=== PATIENT | male | born 1960 | race Caucasian/White ===

== ENCOUNTER 2017-02-16 07:49 | Inpatient (IN) | payer OTHER ==
[~2017-02-16] VITALS: Ht 167.6 cm; Wt 81.6 kg
--- NOTE | 2017-02-16 08:03 | NUR ---
PT COMPLAINS OF MID EPIGASTRIC PAIN THAT RADIATES INTO HIS BACK SINCE 0300 THIS AM, TRIED PEPCID WITH NO RELIEF AT 0500, TOOK MYLANTA AT 0730 AND VOMITTED IT UP. PT STATES THAT HE HAD SIMILAR PAIN YESTERDAY AM AND THEY WENT AWAY.
--- NOTE | 2017-02-16 08:08 | ED GENERAL ADULT ---
History of Present Illness General Chief Complaint: Abdominal Pain/Flank Pain Stated Complaint: UPPER ABD PAIN NAUSEA Vital Signs & Intake/Output Vital Signs & Intake/Output Vital Signs Date Time Temp Pulse Resp B/P B/P Pulse O2 O2 Flow FiO2 Mean Ox Delivery Rate 02/16 0756 96.4 70 16 151/88 99 Room Air Allergies Coded Allergies: tetracycline (Severe, PANCREATITIS 02/16/17) Reconcile Medications Aspirin (Aspirin*) 81 MG TAB.CHEW 1 TAB PO DAILY HEART HEALTH (Reported) Famotidine 20 MG TABLET 1 TAB PO ONCE GI (Reported) Fish Oil/Borage/Flax/Om3,6,9#1 ([place] 3-6-9 1,200 MG Softgel) 1,200 MG CAPSULE 1 CAP PO DAILY SUPPLEMENT (Reported) Multivit-Minerals/FA/Lycopene (One Daily For Men Tablet) 0.4 MG-600 MCG TABLET 1 TAB PO DAILY VITAMIN SUPPORT (Reported) Rosuvastatin Calcium (Crestor) 5 MG TABLET 1 TAB PO DAILY CHOLESTEROL ( Reported) Valacyclovir HCl (Valacyclovir) 500 MG TABLET 1 TAB PO DAILY ANTIBIOTIC, INFECTION (Reported) Triage Note: PT COMPLAINS OF MID EPIGASTRIC PAIN THAT RADIATES INTO HIS BACK SINCE 0300 THIS AM, TRIED PEPCID WITH NO RELIEF AT 0500, TOOK MYLANTA AT 0730 AND VOMITTED IT UP. PT STATES THAT HE HAD SIMILAR PAIN YESTERDAY AM AND THEY WENT AWAY. 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
[2017-02-16] MEDS ORDERED: VALACYCLOVIR500 M1 PO (08:20)
[2017-02-16] MEDS ORDERED: OMEGA 3-6-9 11200 MG PO (08:21)
[2017-02-16] MEDS ORDERED: CRESTOR5 M1 PO (08:21)
[2017-02-16] MEDS ORDERED: ASPIRIN81 M4 PO (08:21)
[2017-02-16] MEDS ORDERED: FAMOTIDINE20 M1 PO (08:22)
[2017-02-16] MEDS ORDERED: ONE DAILY FOR1 EAC1 PO (08:22)
--- NOTE | 2017-02-16 08:27 | NUR ---
PT TO ROOM 7 CHANGING INTO GOWN AND TO BE PLACED ON MONITOR
--- NOTE | 2017-02-16 08:29 | ED GI/GU/ABDOMINAL COMPLAINT ---
History of Present Illness General Chief Complaint: Abdominal Pain/Flank Pain Stated Complaint: UPPER ABD PAIN NAUSEA Source: patient, family, old records Exam Limitations: no limitations Vital Signs & Intake/Output Vital Signs & Intake/Output Vital Signs Date Time Temp Pulse Resp B/P B/P Pulse O2 O2 Flow FiO2 Mean Ox Delivery Rate 02/16 1358 97.9 74 18 124/74 98 Room Air 02/16 1255 97.5 68 15 129/89 98 Room Air 02/16 1039 97.3 82 18 136/90 97 Room Air 02/16 0756 96.4 70 16 151/88 99 Room Air Allergies Coded Allergies: tetracycline (Severe, PANCREATITIS 02/16/17) Reconcile Medications Aspirin (Aspirin*) 81 MG TAB.CHEW 1 TAB PO DAILY HEART HEALTH (Reported) Famotidine 20 MG TABLET 1 TAB PO ONCE GI (Reported) Fish Oil/Borage/Flax/Om3,6,9#1 ([place] 3-6-9 1,200 MG Softgel) 1,200 MG CAPSULE 1 CAP PO DAILY SUPPLEMENT (Reported) Multivit-Minerals/FA/Lycopene (One Daily For Men Tablet) 0.4 MG-600 MCG TABLET 1 TAB PO DAILY VITAMIN SUPPORT (Reported) Rosuvastatin Calcium (Crestor) 5 MG TABLET 1 TAB PO DAILY CHOLESTEROL ( Reported) Valacyclovir HCl (Valacyclovir) 500 MG TABLET 1 TAB PO DAILY ANTIBIOTIC, INFECTION (Reported) Triage Note: PT COMPLAINS OF MID EPIGASTRIC PAIN THAT RADIATES INTO HIS BACK SINCE 0300 THIS AM, TRIED PEPCID WITH NO RELIEF AT 0500, TOOK MYLANTA AT 0730 AND VOMITTED IT UP. PT STATES THAT HE HAD SIMILAR PAIN YESTERDAY AM AND THEY WENT AWAY. Triage Nurses Notes Reviewed? yes Onset: Abrupt Duration: day(s): (1), constant, changing over time, continues in ED Timing: single episode today Quality/Severity: moderate, sharpness, stabbing, vomiting Severity Numbers: 5 Location: epigastric, left upper quadrant Radiation: back Activities at Onset: sleep Prior Abdominal Problems: gerd No Modifying Factors: none Modifying Factors: Worsens With: eating, movement, palpation. Associated Symptoms: abdominal pain, loss of appetite, nausea/vomiting HPI: 56-year-old male history of hyperlipidemia and GERD presents for evaluation of upper abdominal pain. Patient reports that 2 nights ago he was awoken suddenly with pain in his epigastric area. Patient reports that the pain was mild to moderate and went away in a couple hours. he was feeling better throughout the day until again in the middle of night he was woken up with epigastric pain that radiates to his back. During this episode the pain was more severe and associated with nausea and loose stools. No blood in the stool. Pain is worse with eating or any type of movement. he tried taking a dose of Pepcid and Mylanta without any improvement. Patient reports he has had similar symptoms in the past when he's been diagnosed with gastritis. He also has a history of pancreatitis caused by an allergic reaction. Denies any alcohol use, fevers, previous abdominal surgeries, shortness of breath chest pain, urinary symptoms. Patient feels currently his pain is a 5 out of 10 improved from 7 out of 10 when he first arrived in the emergency department. Of note patient has a history of medication-induced acute pancreatitis caused by tetracycline. (YARELY PETE PA-C) Past History Travel History Traveled to [place] past 21 day No Medical History Any Pertinent Medical History? 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 Yes (YARELY PETE PA-C) Review of Systems Review of Systems Constitutional: Reports: chills. EENTM: Reports: no symptoms. Respiratory: Reports: no symptoms. Cardiovascular: Reports: no symptoms. GI: Reports: see HPI, abdominal pain, diarrhea, nausea, vomiting. Genitourinary: Reports: no symptoms. Musculoskeletal: Reports: no symptoms. Skin: Reports: no symptoms. Neurological/Psychological: Reports: no symptoms. Hematologic/Endocrine: Reports: no symptoms. Immunologic/Allergic: Reports: no symptoms. All Other Systems: Reviewed and Negative (YARELY PETE PA-C) Physical Exam Physical Exam General Appearance: well developed/nourished, no apparent distress, alert, awake , anxious Head: atraumatic, normal appearance Eyes: Bilateral: normal appearance, PERRL, EOMI, normal inspection. Ears, Nose, Throat, Mouth: hearing grossly normal, moist mucous membrane Neck: normal inspection, supple, full range of motion, normal alignment Respiratory: normal breath sounds, chest non-tender, no respiratory distress, lungs clear Cardiovascular: regular rate/rhythm, normal peripheral pulses Peripheral Pulses: 2+ dorsalis pedis (R), 2+ dorsalis pedis (L) Gastrointestinal: normal bowel sounds, soft, tenderness (EPIGASTRIC, LUQ) Back: normal inspection, normal range of motion, no vertebral tenderness Extremities: normal range of motion Neurologic/Psych: no motor/sensory deficits, awake, alert, oriented x 3, normal gait, normal mood/affect Skin: intact, normal color, warm/dry Core Measures ACS in differential dx? Yes Severe Sepsis Present: No Septic Shock Present: No (YARELY PETE PA-C) Progress Differential Diagnosis: AMI, cholecystitis, gastritis, hepatitis, pancreatitis, peptic ulcer, PUD/GERD Plan of Care: Orders Procedure Date/time Status Nothing by Mouth 02/16 L Complete Vital Signs 02/16 1350 Active Teach/Educate 02/16 1350 Active Pain Treatment and Response 02/16 1350 Active Nutritional Intake, Monitor 02/16 1350 Active Isolation 02/16 1350 Active Intake & Output 02/16 1350 Active Patient Care Conference 02/16 1350 Active Activity/Ambulation 02/16 1350 Active Pathway - chart 02/16 1307 Active Patient Data 02/16 1106 Active ED Holding Orders 02/16 1047 Active Admit to inpatient 02/16 1047 Active Vital Signs 02/16 1047 Active Code Status 02/16 1047 Active Add-on Test (ER Only) 02/16 1008 Active LIPID PANEL 02/16 0850 Complete URINALYSIS 02/16 0841 Complete TROPONIN LEVEL 02/16 0841 Complete LIPASE 02/16 0841 Complete C-REACTIVE PROTEIN 02/16 0841 Complete COMPREHENSIVE METABOLIC PANEL 02/16 0841 Complete CBC WITHOUT DIFFERENTIAL 02/16 0841 Complete AMYLASE 02/16 0841 Complete Intake & Output 02/16 0828 Active EKG 02/16 0752 Active House Staff 02/16 UNK Active VTE Mechanical Prophylaxis 02/16 UNK Active PHYSICIAN CONSULT 02/16 UNK Active Current Medications Sig/Saud Start time Last Medication Dose Stop Time Status Admin Aspirin 81 MG DAILY 02/17 1000 AC (Aspirin) Pantoprazole Sodium 40 MG DAILY 02/17 1000 AC (Protonix) Ondansetron HCl 4 MG Q6P PRN 02/16 1330 AC (Zofran) Lactated Ringer's 1,000 ML .Q5H 02/16 1315 AC 02/16 (Lactated Ringers) 1945 Enoxaparin Sodium 40 MG DAILY 02/16 1301 AC (Lovenox) Acetaminophen 650 MG Q6P PRN 02/16 1300 AC (Tylenol) Acetaminophen 1,000 MG Q6P PRN 02/16 1300 AC 02/16 (Ofirmev) 1900 Hydromorphone HCl 0.5 MG Q4P PRN 02/16 1300 AC 02/16 (Dilaudid) 1649 Laboratory Tests 02/16/17 1008: Triglycerides Cancelled, Cholesterol Cancelled, LDL Cholesterol, Calc Cancelled, HDL Cholesterol Cancelled, Cholesterol/HDL Ratio Cancelled 02/16/17 0900: Urine Color YEL, Urine Clarity CLEAR, Urine pH 6.0, Ur Specific [place] 1.015, Urine Protein NEG, Urine Ketones NEG, Urine Nitrite NEG, Urine Bilirubin NEG, Urine Urobilinogen 0.2, Ur Leukocyte Esterase NEG, Ur Microscopic EXAM NOT REQUIRED, Urine Hemoglobin NEG, Urine Glucose NEG 02/16/17 0850: Anion Gap 11, Estimated GFR > 60, BUN/Creatinine Ratio 21.1, Glucose 101 H, Calcium 9.5, Total Bilirubin 0.3, AST 48, ALT 74 H, Alkaline Phosphatase 69, Troponin I < 0.01, C-Reactive Prot, Quant < 0.5, Total Protein 6.8, Albumin 4.1, Globulin 2.7, Albumin/Globulin Ratio 1.5, Triglycerides 53, Cholesterol 127, LDL Cholesterol, Calc 85, HDL Cholesterol 32 L, Cholesterol/HDL Ratio 4, Amylase 3465 H, Lipase > 39590 H, CBC w Diff NO MAN DIFF REQ, RBC 4.99, MCV 85.7, MCH 28.4, RDW 14.1, MPV 8.2, Gran % 84.4 H, Lymphocytes % 9.6 L, Monocytes % 5.8, Eosinophils % 0.1, Basophils % 0.1, Absolute Granulocytes 11.6 H, Absolute Lymphocytes 1.3, Absolute Monocytes 0.8 H, Absolute Eosinophils 0, Absolute Basophils 0, PUBS MCHC 33.1 8:55 AM: Patient seen and evaluated. Blood work drawn. Patient given 1 L of normal saline IV, along with with 40 mg of Protonix IV. We'll follow up on blood work and see how patient response to medications. Based on blood work and patient's response to treatment IT will be determined if imaging will be necessary. 9:48 AM: Lipase elevated over 10,000 supporting a diagnosis of acute pancreatitis. Lipid panel ordered. Ultrasound of the right upper quadrant was ordered to rule out gallstones. Another possible etiology for pancreatitis would be medication induced. Patient takes Crestor and valacyclovir which both have been found to possibly cause pancreatitis. The results with patient and discussed case with Dr. Knox and he is in agreement with the plan. Patient will be maDE nothing by mouth. WILL follow up on ultrasound. 10:50 AM: Ultrasound right upper quadrant was within normal limits. Patient will be admitted to general medicine for further treatment of acute pancreatitis due to medications. Spoke with hospitalist and Dr. landers are both in agreement with the plan. Discussed all results of labs and imaging with the patient and they're agreeable to plan. (YARELY PETE PA-C) Initial ED EKG: normal axis, normal intervals, normal p-waves, normal QRS complex, normal sinus rhythm, no ST T wave changes (YARELY PETE PA-C) Departure Departure Disposition: STILL A PATIENT Condition: Stable Clinical Impression Primary Impression: Acute pancreatitis Qualifiers: Pancreatitis type: unspecified pancreatitis type Acute pancreatitis complication: unspecified Qualified Code: K85.90 - Acute pancreatitis without necrosis or infection, unspecified Referrals: BETINA PETERSON,CARMEN Gomez (PCP/Family) Departure Forms: Customer Survey General Discharge Information Admission Note Spoke With: JUAQUIN MAYORGA MD Documentation of Exam: pt has acute pancreatitis likely caused by medication. His lipase is greater than 10,000. Requires admission to general medicine for IV fluids, IV pain control, serial labs, GI referral, medication adjustment, and further evaluation and determine etiology of pancreatitis. (YARELY PETE PA-C) PA/JOCKEY'S AGENT Co-Sign Statement Statement: ED Attending supervision documentation- [x] I saw and evaluated the patient. I have also reviewed all the pertinent lab results and diagnostic results. I agree with the findings and the plan of care as documented in the PA's/JOCKEY'S AGENT's documentation. [] I have reviewed the ED Record and agree with the PA's/JOCKEY'S AGENT's documentation. [] Additions or exceptions (if any) to the PAs/JOCKEY'S AGENT's note and plan are summarized below: [] (JOEY KNOX DO)
--- NOTE | 2017-02-16 08:30 | NUR ---
CADY PRITCHETT AT BEDSIDE TO EVAL PT
--- NOTE | 2017-02-16 08:57 | NUR ---
LABS DRAWN AND SENT, LAV,SST,BLUE,VARGAS TOP
[2017-02-16 09:00] LABS: ABSOLUTE BASOPHIL COUNT 0 /CUMM (0.0-0.2); ABSOLUTE EOSINOPHIL COUNT 0 /CUMM (0.0-0.7); ABSOLUTE GRANULOCYTE CT 11.6 /CUMM (1.4-6.5); ABSOLUTE LYMPH COUNT 1.3 /CUMM (1.2-3.4); ABSOLUTE MONOCYTE COUNT 0.8 /CUMM (0.10-0.60); BASOPHIL % 0.1 % (0.0-2.0); EOSINOPHIL % 0.1 % (0-5); HEMATOCRIT 42.7 % (42-52); MEAN CORPUSCULAR HGB 28.4 PG (27.0-31.0); MEAN CORPUSCULAR HGB CONC 33.1 G/DL (33.0-37.0); MEAN CORPUSCULAR VOLUME 85.7 FL (80.0-94.0); MEAN PLATELET VOLUME 8.2 FL (7.4-10.4); PLATELET COUNT 230 /CUMM (130-400); RBC DISTRIBUTION WIDTH 14.1 % (11.5-14.5); RED BLOOD CELL CT 4.99 /CUMM (4.70-6.10); WHITE BLOOD CELL COUNT 13.8 /CUMM (4.8-10.8)
[2017-02-16 09:18] LABS: GRANULOCYTE % 84.4 % (42.2-75.2)
--- NOTE | 2017-02-16 09:59 | NUR ---
PA AT BEDSIDE TO DISCUSS POC WITH PT AND FAMILY
--- NOTE | 2017-02-16 10:00 | NUR ---
PT COMPLETED IV NS
--- NOTE | 2017-02-16 10:09 | NUR ---
MD KNOX EVALUATED PT AT BEDSIDE
--- NOTE | 2017-02-16 10:43 | ULTRASOUND REPORT ---
EXAMINATION: US ABDOMEN LIMITED CLINICAL INFORMATION: Epigastric pain. COMPARISON: None TECHNIQUE: Real-time imaging of the right upper quadrant abdominal viscera. FINDINGS: PANCREAS: Not well evaluated secondary to bowel gas. LIVER: Normal. The liver demonstrates normal size, contour and echogenicity. No focal lesion or intrahepatic biliary duct dilatation. GALLBLADDER: Normal. The gallbladder is physiologically distended without evidence of stones, sludge, polyps, wall thickening or pericholecystic fluid. COMMON BILE DUCT: Normal in caliber measuring 0.5 cm in diameter. RIGHT KIDNEY: Normal. No hydronephrosis. No renal calculi or focal parenchymal lesions. The kidney measures 11.9 cm in maximum dimension. FREE FLUID: None. IMPRESSION: Nonvisualization of the pancreas due to bowel gas. Otherwise unremarkable right upper quadrant ultrasound.
--- NOTE | 2017-02-16 10:50 | NUR ---
PT HAS IV TYLENOL INFUSING
--- NOTE | 2017-02-16 11:30 | NUR ---
PT NOTED RESTING AND NO DISTRESS NOTED
--- NOTE | 2017-02-16 12:19 | History & Physical ---
LAURA PORTILLO MD 02/16/17 1200: General Information and HPI MD Statement: I have seen and personally examined ELIUD IVORY and documented this H&P. The patient is a 56 year old M who presented with a patient stated chief complaint of [abd pain]. Source of Information: patient, family () Exam Limitations: no limitations History of Present Illness: 56 YO gentleman witha PMH of coronary arteriosclerosis, hypercholesterolemia, drug induced pancreatitis, genital herpes and gastritis presents with c/o of mid abdominal and epigastric pain which started yesterday on his drive to work but resolved on its own. Then this morning he woke up at 3 am with a severe throbing pain in the same region that radiated to his back and continued despite passing a small BM with gas. Pain was not relieved by pepcid and later mylanta which he says he threw up as soon as he drank it. He is not nauseaus and only vomited that one time but endorses chills but no fever. He denies SOB, watery stools/ diarrhea, blood in stool, weightloss. He says pain is severe but it's not as bad as when he had his 1st ever episode of pancreatitis. He is currently being treated by his PCP for his genital herpes with valacyclovir which he began taking in January 2017. He took 500mg TID for 1 week and was subsequently palced on maintenance for 3 months thereafter at 500mg daily to help reduce his viral load, and he says he has been doing well on it so far without any recurrences. He was also started on crestor in January 2017 for hyperchoesterolemia. He takes a one-a-day Men's multivitamin, a baby aspirin, fish oil and co-q10 daily, no herbal suppelments. He is a formae smoker and only drinks ETOH ocassionally, no illicit drugs. He has no FH of pancreatitis or pancreatic cancer. He endorses a 3 time hx pancreatitis in 1982, 1982, and 1983 and it was found that he was having the pancreatitis episodes after taking tetracyclines for an infection. He also had a hx stress related gastritis many years ago that has since resolved and he has not had to take any meds in a long time. He is scheduled for a routine colonoscopy in 1 month. Allergies/Medications Allergies: Coded Allergies: tetracycline (Severe, PANCREATITIS 02/16/17) Home Med list Aspirin (Aspirin*) 81 MG TAB.CHEW 1 TAB PO DAILY HEART HEALTH (Reported) Famotidine 20 MG TABLET 1 TAB PO ONCE GI (Reported) Fish Oil/Borage/Flax/Om3,6,9#1 ([place] 3-6-9 1,200 MG Softgel) 1,200 MG CAPSULE 1 CAP PO DAILY SUPPLEMENT (Reported) Multivit-Minerals/FA/Lycopene (One Daily For Men Tablet) 0.4 MG-600 MCG TABLET 1 TAB PO DAILY VITAMIN SUPPORT (Reported) Rosuvastatin Calcium (Crestor) 5 MG TABLET 1 TAB PO DAILY CHOLESTEROL ( Reported) Valacyclovir HCl (Valacyclovir) 500 MG TABLET 1 TAB PO DAILY ANTIBIOTIC, INFECTION (Reported) Compliance With Home Meds: GOOD Past History Travel History Traveled to [place] past 21 day No Medical History Neurological: NONE EENT: NONE Cardiovascular: hyperlipidemia Respiratory: NONE Gastrointestinal: GERD Hepatic: NONE Renal: NONE Musculoskeletal: NONE Psychiatric: NONE Endocrine: NONE Blood Disorders: NONE Cancer(s): 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 Home Who Do You Live With? spouse Services at Home: None Primary Language: Romanian Smoking Status: Former Smoker ETOH Use: occasional use Illicit Drug Use: denies illicit drug use Living Will? yes Functional Ability ADLs Independent: dressing, eating, toileting, bathing. Ambulation: independent IADLs Independent: shopping, housework, finances, telephone, transportation, medication admin. Review of Systems Review of Systems Constitutional: Reports: no symptoms. Exam & Diagnostic Data Last 24 Hrs of Vital Signs/I&O Vital Signs Date Time Temp Pulse Resp B/P B/P Pulse O2 O2 Flow FiO2 Mean Ox Delivery Rate 02/16 1039 97.3 82 18 136/90 97 Room Air 02/16 0756 96.4 70 16 151/88 99 Room Air Intake & Output 02/16 1600 02/16 0800 02/16 0000 Intake Total Output Total Balance Patient 180 lb Weight Physical Exam General Appearance Alert, Oriented X3, Cooperative, No Acute Distress Skin No Significant Lesion HEENT PERRLA, EOMI, Mucous Membr. moist/pink Neck Supple, No JVD Cardiovascular Regular Rate, Normal S1, Normal S2 Lungs Clear to Auscultation, Normal Air Movement Abdomen Normal Bowel Sounds, Soft, mild generalized tenderness Extremities No Edema, Normal Pulses Last 24 Hrs of Labs/Cristobal: Laboratory Tests 02/16/17 1008: Triglycerides Cancelled, Cholesterol Cancelled, LDL Cholesterol, Calc Cancelled, HDL Cholesterol Cancelled, Cholesterol/HDL Ratio Cancelled 02/16/17 0900: Urine Color YEL, Urine Clarity CLEAR, Urine pH 6.0, Ur Specific [place] 1.015, Urine Protein NEG, Urine Ketones NEG, Urine Nitrite NEG, Urine Bilirubin NEG, Urine Urobilinogen 0.2, Ur Leukocyte Esterase NEG, Ur Microscopic EXAM NOT REQUIRED, Urine Hemoglobin NEG, Urine Glucose NEG 02/16/17 0850: Anion Gap 11, Estimated GFR > 60, BUN/Creatinine Ratio 21.1, Glucose 101 H, Calcium 9.5, Total Bilirubin 0.3, AST 48, ALT 74 H, Alkaline Phosphatase 69, Troponin I < 0.01, C-Reactive Prot, Quant < 0.5, Total Protein 6.8, Albumin 4.1, Globulin 2.7, Albumin/Globulin Ratio 1.5, Triglycerides 53, Cholesterol 127, LDL Cholesterol, Calc 85, HDL Cholesterol 32 L, Cholesterol/HDL Ratio 4, Amylase 3465 H, Lipase > 23235 H, CBC w Diff NO MAN DIFF REQ, RBC 4.99, MCV 85.7, MCH 28.4, RDW 14.1, MPV 8.2, Gran % 84.4 H, Lymphocytes % 9.6 L, Monocytes % 5.8, Eosinophils % 0.1, Basophils % 0.1, Absolute Granulocytes 11.6 H, Absolute Lymphocytes 1.3, Absolute Monocytes 0.8 H, Absolute Eosinophils 0, Absolute Basophils 0, PUBS MCHC 33.1 Diagnostic Data EKG Results NSR, rate 59 Assessment/Plan Assessment: 56 YO gentleman witha PMH of coronary arteriosclerosis, hypercholesterolemia, drug induced pancreatitis, genital herpes and gastritis presents with c/o of mid abdominal and epigastric pain which started yesterday on his drive to work but resolved on its own. Then this morning he woke up at 3 am with a severe throbing pain in the same region that radiated to his back and continued despite passing a small BM with gas. Pain was not relieved by pepcid and later mylanta which he says he threw up as soon as he drank it. He is not nauseaus and only vomited that one time but endorses chills but no fever. He denies SOB, watery stools/ diarrhea, blood in stool, weightloss. He says pain is severe but it's not as bad as when he had his 1st ever episode of pancreatitis. Problem List 1. Mild Acute Pancreatitis-Unclear etiology; possibly drug induced from newly started medications-However, valacyclovir is not clearly known to cause acute pancreatitus and Crestor is a class IV medication for acute pancreatitis. R/O other causes e.g vasculitis, atheroembolism, autoimmune process, tumor, divisum etc Liapse >10,000 Amylase =3,456 YUROK II score=7 2. Hx of Coronary arteriosclerosis 3. Hy of hypercholesterolemia, 4. Hx of drug induced pancreatitis 5. Hx of genital herpes on Valacyclovir 6. Hx of stress induced gastritis Plan Admit to Hold Crestor and Valacyclovir for now-Class IV medication Keep NPO for now IVF hydration with LR 200cc/hr Pain mgt IV zofran for nausea Repeat labs including lipase/amylase in am GI consult Consider a CT scan to better evaluate the pancrease SC lovenox for DVT ppx FC As Ranked By This Provider Problem List: 1. Acute pancreatitis Qualifiers Pancreatitis type: unspecified pancreatitis type Acute pancreatitis complication: unspecified Qualified Code: K85.90 - Acute pancreatitis without necrosis or infection, unspecified Core Measures/Miscellaneous Acute Coronary Syndrome ACS Diagnosis: No Cerebrovascular Accident CVA/TIA Diagnosis: No Congestive Heart Failure CHF Diagnosis: No VTE (View Protocol) VTE Risk Factors: Acute medical illness, Age > 40 No [facility] VTE prophylaxis d/t: VTE low risk, No contraindications No VTE Pharm Prophylaxis d/t: No contraindications VTE Diagnosis: No VTE Type: NONE VTE Confirmed by (Test): NONE Sepsis (View Protocol) Severe Sepsis Present: No Septic Shock Septic Shock Present: No Miscellaneous Documentation Attending Case Discussed With: JUAQUIN MAYORGA MD Primary Care Physician: CARMEN MOFFETT MD Patient sees these Specialists none Level of Patient Care: General Medicine Resident Review Statement Resident Statement: examined this patient Other Findings: see HPI JUAQUIN MAYORGA MD 02/17/17 0737: Attending MD Review Statement Attending Statement Attending Statement: examined this patient, discuss w/resident/PA/MARKER MACHINE, agreed w/resident/PA/MARKER MACHINE, discussed with family, reviewed EMR data (avail), discussed with nursing, reviewed images, amended to note Attending Assessment/Plan: The patient is a 56 yo male with h/o CAD, GERD, HL, genital hepes and distant h/ o tetracycline induced pancreatitis (in ) who presented in ED with epigastric pain and was found to have a lipase > 10,000 c/w pancreatitis. He denied any fever, chills, nausea, vomiting, alcohol intake, etc. Has been on Crestor and Valacyclovir (since 01/2017). He received IV narcotic in ED with pain relief. Physical Exam: VS: T 97.3, P 82, R 18, BP 136/90, PO 97% RA HEENT: eyes- PERRLA, EOMI renetta- dry mucosa Neck: no adenopathy or bruits Chest: clear Cor: RRR, nl S1, S2 w/o murm Abd: BS+, slightly distended, + tender epigastric w/o guarding or rebound Ext: no edema, pulses 2+ Neuro: alert & oriented x 3, non-focal exam Labs/Tests- as above Impression/Plan: #Acute Pancreatitis- US w/o stones (pancreas not visualized well due to gas) with h/o drug induced pancreatitis in past (tetracycline- ). No significant EtOH intake or h/o hyper TG. Has recently started on above meds (? med induced). Viral also possible. Haralson score 7. Plan: Admit to medical floor. Aggressive IV fluids (RL). IV Dilaudid for pain. CT of abdomen to better visualize pancreas. Trend lipase in morning (patient requests). NPO at present. GI consult (called)- of note, the patient was just set up with GI in [facility] for routine colonoscopy (his PCP is in [place]). Hold statin and valacyclovir at present. #HL- as above has been on Crestor. Plan: Will hold Crestor at present. #H/O Genital Herpes- on chronic suppressive therapy with Valacyclovir. Plan: Hold Valacyclovir at present. #GERD- normally on Famotidine. Plan: May give Famotidine IV if needed. #Coronary Atherosclerosis- as per history on ASA. BP and EKG normal. Plan: Hold ASA at present.
--- NOTE | 2017-02-16 12:30 | NUR ---
HOUSE STAFF AT DOOR TO EVAL PT
--- NOTE | 2017-02-16 12:48 | NUR ---
REPORT GIVEN TO NURSE ON FLOOR
--- NOTE | 2017-02-16 12:53 | NUR ---
PT HAS BED ASSIGNMENT 226-1. RN NOTIFIED.
--- NOTE | 2017-02-16 13:12 | NUR ---
ELIUD IVORY Nurse Note by: FRANKLIN DIAZ I agree with the DRUPAL DEVELOPER findings/evaluation of this patient's condition. Entered by: FRANKLIN DIAZ Date: 02/16/17 Time: 9086
--- NOTE | 2017-02-16 13:21 | NUR ---
PT MEDICATED ORDERED
[2017-02-16 13:58] VITALS: BP 124/74
--- NOTE | 2017-02-16 17:08 | Discharge Summary ---
Visit Information Visit Dates Admission Date: 02/16/17 Discharge Date: 02/20/2017 Hospital Course Course Attending Physician: JUAQUIN MAYORGA MD Primary Care Physician: BETINA PETERSON,CARMEN Gomez Consulting Request: Consulting Specialty: Gastroenterology Consulting Physician: Leodan Gonzalez Reason for Consult: Acute Pancreatitis Hospital Course: 56 YO gentleman witha PMH of coronary arteriosclerosis, hypercholesterolemia, drug induced pancreatitis, genital herpes and gastritis presents with c/o of 1 day hx mid abdominal and epigastric pain that radiated to his back and was not relieved by pepcid or mylanta. Pain was assoicated wit nausea and he vomited once. He has a history of Tetracycline-induced pancreatitis. Problem List 1. Statin-Induced Acute Pancreatitis He was recently started on Rosuvostatin for Hypercholesterolmia and valacyclovir for genital herpes in January 2017 and has been without issues until this episode. He endorses a history of tetracycline-induced in the . Valacyclovir is not clearly known to cause acute pancreatitis, however, Rosuvostatin is ranked as a class IV medication that can cause acute pancreatitis. CT scan confirmed an acute inflammation of his pancreas. His calculated ANIAK II score was 7. Admitting labs showed Lipase >10,000 and amylase=3,456. Patient was started on clear liquid diet and later on advanced to regular diet. He tolerated diet well and denied any recurrent abdominal pain, nausea or vomiting. Rosuvostatin was discontinued and patient has been advised to avoid all statin medications as this is the likely tirgger for his acute pancreatitis. 2. Hx of Coronary arteriosclerosis and hypercholesterolemia Newly diagnosed a few weeks ago by his PCP and started on Rosuvostatin. However this drug seems to have triggered an acute pancreatitis, so it was discontinued and patient can no longer be placed on a statin medication to avoid a recurrent pancreatitis. Other cholesterol lowering medciation and lifestyle changes should be used. 3. Hx of Tetracycline-Induced pancreatitis 4. Hx of genital herpes Patient can resume Valacyclovir as this is not a likely cause of his acute pancreatitis 5. Hx of stress induced gastritis Stable Complications: none Allergies: Coded Allergies: tetracycline (Severe, PANCREATITIS 02/16/17) Significant Procedures: none Pertinent Lab Results: Liapse >10,000 Amylase =3,465 Disposition Summary Disposition Principal Diagnosis: Acute Statin-induced pancreatitis Additional Diagnosis: Coronary atherosclerosis, Hx of Tetracycline-induced pancreatitis, hypercholesterolemia, Hx of stress induced gastritis, genital herpes Discharge Disposition: home or self care Discharge Instructions General Discharge Information Code Status: Full Code Patient's Diet: Heart healthy Patient's Activity: As tolerated Follow-Up Instructions/Appts: Please follow up with your PCP in 1 week Please follow-up with your GI doctor after discharge Please try to avoid Crestor in future Ask Your PCP about other alternatives Medications at Discharge Discharge Medications: Stop taking the following medications: Rosuvastatin Calcium (Crestor) 5 MG TABLET ORAL DAILY Qty = 38 Continue taking these medications: Valacyclovir HCl (Valacyclovir) 500 MG TABLET 1 Tablet ORAL DAILY Qty = 30 Comments: NOT GIVEN IN HOSPITAL Fish Oil/Borage/Flax/Om3,6,9#1 ([place] 3-6-9 1,200 MG Softgel) 1,200 MG CAPSULE 1 Capsule ORAL DAILY Comments: NOT GIVEN IN HOSPITAL Aspirin (Aspirin*) 81 MG TAB.CHEW 1 Tablet ORAL DAILY Comments: NOT TAKEN IN HOSPITAL Multivit-Minerals/FA/Lycopene (One Daily For Men Tablet) 0.4 MG-600 MCG TABLET 1 Tablet ORAL DAILY Comments: NOT GIVEN IN HOSPITAL Famotidine (Famotidine) 20 MG TABLET 1 Tablet ORAL GIVE ONCE Comments: NOT GIVEN IN HOSPITAL Copies To: BETINA PETERSON,CARMEN Gomez
--- NOTE | 2017-02-16 17:22 | CT SCAN REPORT ---
EXAMINATION: CT ABDOMEN AND PELVIS WITH CONTRAST CLINICAL INFORMATION: Abdominal pain. Markedly elevated lipase and amylase levels. COMPARISON: Abdominal ultrasound 02/16/2017. TECHNIQUE: Multidetector volumetric imaging was performed of the abdomen and pelvis before and after the IV administration of 93 mL of Optiray 320 intravenous contrast. Sagittal and coronal reformatted images were obtained on the technologist's workstation. DLP: 390 mGy-cm FINDINGS: LUNG BASES: The visualized lung bases are unremarkable. LIVER, GALLBLADDER, AND BILIARY TREE: The liver is normal in size, shape, and attenuation. No focal hepatic lesion or biliary ductal dilatation is present. The gallbladder is unremarkable with no evidence of radiopaque gallstones, gallbladder wall thickening, or obvious pericholecystic inflammatory changes. PANCREAS: The pancreas enhances homogeneously. There are no focal areas of nonenhancement to suggest pancreatic necrosis. There are mild peripancreatic inflammatory changes, indicative of acute pancreatitis. There is minimal free fluid adjacent to the distal pancreatic tail as well as within the left paracolic gutter. No organizing peripancreatic fluid collections are identified. SPLEEN: Unremarkable. ADRENAL GLANDS: Unremarkable. KIDNEYS AND URETERS: The kidneys are normal in size, shape, and attenuation. No hydronephrosis, hydroureter, or calculi seen. No perinephric stranding. BLADDER: Unremarkable. GASTROINTESTINAL TRACT: Normal anatomic orientation of the stomach relative to the duodenum. Normal caliber of abdominal and pelvic bowel loops, without evidence of obstruction or ileus. There is mild circumferential thickening and mucosal hyperemia of the duodenum. This is favored to reflect secondary reactive inflammatory changes within the duodenum given evidence of acute pancreatitis. Normal-appearing appendix within the right lower quadrant of the abdomen. No organizing intra-abdominal fluid collections or free intraperitoneal air. ABDOMINAL WALL: No significant hernia is appreciated. LYMPH NODES: No significant abdominal or pelvic adenopathy. VASCULAR: Patent abdominal vasculature. Normal course and caliber of the abdominal aorta and its branching vessels, without aneurysmal dilatation. PELVIC VISCERA: Unremarkable. OSSEOUS STRUCTURES: No acute osseous abnormality. Normal alignment of the thoracolumbar spine. No destructive osseous lesions. IMPRESSION: 1. The pancreas appears edematous but enhances homogeneously without focal regions of nonenhancement to suggest pancreatic necrosis. There are mild peripancreatic inflammatory changes, indicative of acute pancreatitis. Minimal free fluid is visualized adjacent to the distal pancreatic tail as well as within the left paracolic gutter. No rim-enhancing organizing fluid collections are identified. 2. Circumferential thickening and mucosal hyperemia involving the duodenum, favored to represent secondary reactive inflammatory changes within the duodenum given evidence of adjacent acute pancreatitis.
[2017-02-16 22:51] VITALS: BP 120/80
--- NOTE | 2017-02-17 00:18 | Admission Certification ---
Admission Certification Certification Statement - As attending physician, I certify that at the time of - admission, based on clinical presentation, severity of - symptoms, need for further diagnostic testing and - therapeutic interventions, and risk of adverse outcomes - without in-hospital treatment, in my clinical assessment, - this patient requires an acute hospital stay for a minimum - of two nights or longer. I have also considered psychsocial - factors such as support system, advanced age, financial - issues, cognitive issues, and failed out-patient treatments, - past re-admission history, safety of patient, and lack of - compliance as applicable. Specific rationale supporting this admission is: Patienbt admitted with acute pancreatitis with lipase >10,000. Requires IF fluids, NPO, IV narcotics. CT abd, GI consult.
[2017-02-17 07:21] VITALS: BP 124/80
[2017-02-17 08:13] LABS: ABSOLUTE BASOPHIL COUNT 0 /CUMM (0.0-0.2); ABSOLUTE EOSINOPHIL COUNT 0 /CUMM (0.0-0.7); ABSOLUTE LYMPH COUNT 1.9 /CUMM (1.2-3.4); ABSOLUTE MONOCYTE COUNT 0.9 /CUMM (0.10-0.60); BASOPHIL % 0.2 % (0.0-2.0); EOSINOPHIL % 0.1 % (0-5); GRANULOCYTE % 80.5 % (42.2-75.2); HEMATOCRIT 42.1 % (42-52); MEAN CORPUSCULAR HGB 28.6 PG (27.0-31.0); MEAN CORPUSCULAR HGB CONC 33.4 G/DL (33.0-37.0); MEAN CORPUSCULAR VOLUME 85.5 FL (80.0-94.0); MEAN PLATELET VOLUME 8.8 FL (7.4-10.4); PLATELET COUNT 222 /CUMM (130-400); RBC DISTRIBUTION WIDTH 14.5 % (11.5-14.5); RED BLOOD CELL CT 4.92 /CUMM (4.70-6.10); WHITE BLOOD CELL COUNT 14.9 /CUMM (4.8-10.8)
--- NOTE | 2017-02-17 10:36 | PN- Att Addend ---
Attending Addendum Attending Brief Note Patient seen and examined. Also spoke to his at bedside. He continues to have abdominal pain and doesn't feel any better. He is extremely worried about his nothing by mouth status and the fact that he doesn't feel any better. On exam he is afebrile, blood pressures 120/80, pulse is 72 and his breathing at 16-18. He is awake alert oriented, lungs are clear to auscultation bilaterally, heart is S1-S2 regular, abdomen is distended soft with diffuse tenderness ,I dont appreciate rebound or guarding but his tenderness is in the epigastrium and upper quadrants. He has no edema and no jaundice. He is a 56-year-old male, he has a past medical history of tetracycline-induced pancreatitis, the last episode was in the . He has coronary artery disease and hyperlipidemia and recently started valacyclovir for genital herpes prevention and a statin in January 2017. He is here with acute pancreatitis as evidenced by abdominal pain, elevated amylase, lipase and a CT abdomen with IV contrast done last evening which shows inflamed pancreas, no necrosis and mildly inflamed duodenum likely secondary to the pancreatitis. We have him nothing by mouth, he's got IV lactated Ringer's initially 200 mL an hour now will make it 150 mL an hour with IV Tylenol and IV Dilaudid for pain. His numbers look pretty much the same, his white count has gone up slightly and will need to trend that closely. For now will continue the nothing by mouth IV fluids and analgesics. His last bowel movement was yesterday morning at 5 AM in the morning and I explained that the opiates, the nothing by mouth status and the pancreatitis probably is causing the constipation. We'll make sure GI sees him and follow closely.
--- NOTE | 2017-02-17 13:09 | Cons- Gastroenterology ---
General Information and HPI Consulting Request Date of Consult: 02/17/17 Requested By: JUAQUIN MAYORGA MD Reason for Consult: Acute pancreatitis Source of Information: patient, family, old records Exam Limitations: no limitations History of Present Illness: 56 YO gentleman presenting with epigastric pain nausea vomiting. Patient has previously had pancreatitis in 1982, 1982, and 1983 and an each episode was after taking tetracycline. He also had a hx stress related gastritis many years ago that has since resolved and he has not had to take any meds in a long time. Additional PMH of coronary arteriosclerosis, hypercholesterolemia, drug induced pancreatitis, genital herpes and gastritis presents with c/o of mid abdominal and epigastric pain which started yesterday on his drive to work but resolved on its own. Patient ate out on Sunday evening and had a meal of stuck chili peppers. The following day he felt slightly unwell with some abdominal discomfort and put it down to his meal the previous night. Throughout he continued to feel slightly unwell and ate out again on night. He was awoken at 3 am on the day of admission with a severe throbing pain in the same region that radiated to his back and continued despite passing a small BM with gas. Pain was not relieved by pepcid and later mylanta which he says he threw up as soon as he drank it. He is not nauseaus and only vomited that one time but endorses chills but no fever. He denies SOB, watery stools/diarrhea, blood in stool, weightloss. He says pain is severe but it's not as bad as when he had his 1st ever episode of pancreatitis. Patient was treated for genital herpes with valacyclovir which he began taking in January 2017. He took 500mg TID for 1 week and was subsequently palced on maintenance for 3 months thereafter at 500mg daily to help reduce his viral load , and he says he has been doing well on it so far without any recurrences. He was also started on crestor in January 2017 for hyperchoesterolemia. He takes a one- a-day Men's multivitamin, a baby aspirin, fish oil and co-q10 daily, no herbal suppelments. He is a formae smoker and only drinks ETOH ocassionally, no illicit drugs. He has no FH of pancreatitis or pancreatic cancer. Allergies/Medications Allergies: Coded Allergies: tetracycline (Severe, PANCREATITIS 02/16/17) Home Med List: Aspirin (Aspirin*) 81 MG TAB.CHEW 1 TAB PO DAILY HEART HEALTH (Reported) Famotidine 20 MG TABLET 1 TAB PO ONCE GI (Reported) Fish Oil/Borage/Flax/Om3,6,9#1 ([place] 3-6-9 1,200 MG Softgel) 1,200 MG CAPSULE 1 CAP PO DAILY SUPPLEMENT (Reported) Multivit-Minerals/FA/Lycopene (One Daily For Men Tablet) 0.4 MG-600 MCG TABLET 1 TAB PO DAILY VITAMIN SUPPORT (Reported) Rosuvastatin Calcium (Crestor) 5 MG TABLET 1 TAB PO DAILY CHOLESTEROL ( Reported) Valacyclovir HCl (Valacyclovir) 500 MG TABLET 1 TAB PO DAILY ANTIBIOTIC, INFECTION (Reported) Past History Travel History Traveled to [place] past 21 day No Medical History Blood Transfusion Hx: No Neurological: NONE EENT: NONE Cardiovascular: hyperlipidemia Respiratory: NONE Gastrointestinal: GERD Hepatic: NONE Renal: NONE Musculoskeletal: NONE Psychiatric: NONE Endocrine: NONE Blood Disorders: NONE Cancer(s): NONE 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 Home Who Do You Live With? spouse Services at Home: None Primary Language: Yi Smoking Status: Former Smoker ETOH Use: occasional use Illicit Drug Use: denies illicit drug use Living Will? yes Functional Ability ADLs Independent: dressing, eating, toileting, bathing. Ambulation: independent IADLs Independent: shopping, housework, finances, telephone, transportation, medication admin. Review of Systems Review of Systems: Patient does not have any headache chest pain shortness of breath palpitations fevers or chills right goers dysuria or diarrhea. Exam & Diagnostic Data Vital Signs and I&O Vital Signs Date Time Temp Pulse Resp B/P B/P Pulse O2 O2 Flow FiO2 Mean Ox Delivery Rate 02/17 0721 98.9 72 16 124/80 96 Room Air 02/16 2251 98.5 75 18 120/80 94 Room Air 02/16 1358 97.9 74 18 124/74 98 Room Air Intake & Output 02/17 1600 02/17 0400 02/16 1600 02/16 0400 02/15 1600 02/15 0400 Intake Total Output Total Balance Patient 180 lb Weight General Appearance anxious. Alert, Oriented X3, Cooperative, No Acute Distress Skin No Significant Lesion HEENT PERRLA, EOMI, Mucous Membr. moist/pink Neck Supple, No JVD Cardiovascular Regular Rate, Normal S1, Normal S2 Lungs Clear to Auscultation, Normal Air Movement Abdomen Normal Bowel Sounds, Soft, mild generalized tenderness particularly in the epigastric region. Extremities No Edema, Normal Pulses Assessment/Plan Assessment/Recommendations: In summary we have a 56-year-old gentleman with a history of 3 episodes of pancreatitis approximately 30 years ago. These episodes appeared to be associated with use of tetracycline in each occasion. Since then patient has not had any symptoms related to possible recurrent pancreatitis. He certainly has not had a clear diagnosis of recurrent pancreatitis. This admission based on his clinical presentation Labar tree values and imaging suggests mild to moderately severe acute pancreatitis. Some lab indicators are improving however his white cell count is increased today. Agree with continued supportive care as has already been initiated with volume resuscitation analgesia. No need for antibiotics at this point. Due to the very long Since his original presentation with pancreatitis without suggestion of intermittent ankle otitis, it is highly likely that this episode was triggered and not spontaneous. Reviewing his medications there is no clear association between valacyclovir and pancreatitis in the literature. In contrast statins have been associated at low level II-induced hepatitis. Present the assumption is that the pancreatitis in this case was initiated by the Crestor. It will likely take 2-3 days before significant clinical improvement. However short the patient of the fact that rapid improvement in the first 24 hours is unusual, and there is no reason to believe that he is beginning to have any complications of acute pancreatitis. Consult Acknowledgment - Thank you for your consult request.
[2017-02-17 14:25] VITALS: BP 132/80
[2017-02-17 22:42] VITALS: BP 122/80
[2017-02-18 06:24] VITALS: BP 132/78
[2017-02-18 08:26] LABS: ABSOLUTE BASOPHIL COUNT 0.1 /CUMM (0.0-0.2); ABSOLUTE EOSINOPHIL COUNT 0 /CUMM (0.0-0.7); ABSOLUTE GRANULOCYTE CT 11.9 /CUMM (1.4-6.5); ABSOLUTE LYMPH COUNT 1.6 /CUMM (1.2-3.4); ABSOLUTE MONOCYTE COUNT 1.2 /CUMM (0.10-0.60); BASOPHIL % 0.3 % (0.0-2.0); EOSINOPHIL % 0.2 % (0-5); GRANULOCYTE % 80.7 % (42.2-75.2); HEMATOCRIT 44.6 % (42-52); MEAN CORPUSCULAR HGB 28.4 PG (27.0-31.0); MEAN CORPUSCULAR HGB CONC 33.2 G/DL (33.0-37.0); MEAN CORPUSCULAR VOLUME 85.5 FL (80.0-94.0); MEAN PLATELET VOLUME 9.2 FL (7.4-10.4); PLATELET COUNT 231 /CUMM (130-400); RBC DISTRIBUTION WIDTH 14.4 % (11.5-14.5); RED BLOOD CELL CT 5.22 /CUMM (4.70-6.10); WHITE BLOOD CELL COUNT 14.7 /CUMM (4.8-10.8)
[2017-02-18 08:28] LABS: PT 13.4 SEC (9.4-12.5)
--- NOTE | 2017-02-18 08:53 | PN- Att Addend ---
Attending Addendum Attending Brief Note Overall patient says he feels better. He is eager to try some sips of liquid and says that compared to yesterday now when he sees food he is feeling hungry. He does still does have some soreness in his abdomen and he especially feels the soreness when he takes a deep breath. He is passing gas but hasn't had a bowel movement, his last bowel movement was Sunday morning. On exam his he's afebrile , blood pressure is 130/70, pulse of 77 breathing at 16-18 Awake, alert, oriented and ambulating independently all over the unit with his . No jaundice, lungs are clear to auscultation bilaterally, heart is S1-S2 regular ,abdomen - soft, he's got some mild left upper quadrant and epigastric tenderness no rebound or guarding and no edema. Labs are pending Appreciate GI eval. This is a 56-year-old male with a past medical history of coronary artery disease and remote history of pancreatitis last episode in the attributed to tetracycline. He is here with an acute pancreatitis as supported by CT with IV contrast on Sunday. Dr. Gonzlaez feels this is probably more likely to be statin related rather than the valacyclovir both of which were started in January 2017. For now he is nothing by mouth and IV fluids and IV analgesics. We'll start him on clear liquids today and if he tolerates that can decrease the fluids to 100 mL an hour. We'll also get a chest x-ray PA and lateral to make sure that he has nothing brewing there and follow closely on his labs.
--- NOTE | 2017-02-18 09:03 | PN- Housestaff ---
Subjective Follow-up For: Acute pancreatitis Subjective: Patient was seen and examined this morning, lying comfortably in bed, reported soreness on the left upper quadrant and back. Denied any nausea or vomiting. Patient is willing to start eating, will start with clear liquids and advance diet as tolerated. Fluids will be decreased to 100 mL patient to tolerate diet well. Patient reported flatus but no bowel movement yet. Vital signs are stable, Afebrile. Obtain chest x-ray as patient reported some pleuritic chest pain on deep breathing. Review of Systems Constitutional: Reports: see HPI. Objective Last 24 Hrs of Vital Signs/I&O Vital Signs Date Time Temp Pulse Resp B/P B/P Pulse O2 O2 Flow FiO2 Mean Ox Delivery Rate 02/18 0624 98.6 77 18 132/78 95 Room Air 02/17 2242 98.6 81 19 122/80 93 Room Air 02/17 1425 98.9 81 19 132/80 95 Room Air Intake & Output 02/18 1600 18 0800 02/18 0000 Intake Total 1200 1300 Output Total Balance 1200 1300 Intake, IV 1200 1000 Intake, Oral 300 Physical Exam General Appearance: Alert, Oriented X3, Cooperative, No Acute Distress Skin: No Rashes, No Breakdown, No Significant Lesion Skin Temp/Moisture Exam: Warm/Dry HEENT: Atraumatic, PERRLA, EOMI, Mucous Membr. moist/pink Neck: Supple, No JVD Cardiovascular: Regular Rate, Normal S1, Normal S2, No Murmurs Lungs: Clear to Auscultation, Normal Air Movement Abdomen: Normal Bowel Sounds, Soft, No Tenderness, No Hepatospenomegaly, No Masses Neurological: Normal Gait, Normal Speech, Strength at 5/5 X4 Ext, Normal Tone, Sensation Intact, Cranial Nerves 3-12 NL, Reflexes 2+ Extremities: No Clubbing, No Cyanosis, No Edema, Normal Pulses, No Tenderness/ Swelling Assessment/Plan Assessment: Mr. Rodriguez is 56 year old gentleman with PMH of coronary arteriosclerosis, hypercholesterolemia, drug induced pancreatitis, genital herpes and gastritis presents with c/o of mid abdominal and epigastric pain. Problem List 1. Mild Acute Pancreatitis-Unclear etiology; possibly drug induced from newly started medications-However, valacyclovir is not clearly known to cause acute pancreatitus and Crestor is a class IV medication for acute pancreatitis. R/O other causes e.g vasculitis, atheroembolism, autoimmune process, tumor, divisum etc Liapse >10,000 Amylase =3,456 [place] II score=7 BISAP=zero 2. Hx of Coronary arteriosclerosis 3. Hy of hypercholesterolemia, 4. Hx of drug induced pancreatitis 5. Hx of genital herpes on Valacyclovir 6. Hx of stress induced gastritis Plan We'll advance diet to clear liquids, assess for tolerance Decrease IV fluids to 100 mL per hour GI consultation was obtained, will continue to follow recommendation Hold Crestor and Valacyclovir for now-Class IV medication Pain mgt IV zofran for nausea Repeated lipase 2088, on admission was more than 10,000 Chest x-ray was obtained 02/18/[address] scan to better evaluate the pancrease IMPRESSION: 1. Hypoinflated lungs with linear subsegmental atelectasis in the right midlung and in the left lung base. 2. No focal pneumonia. 3. Mildly gas distended small bowel loops in the upper abdomen. Clinical correlation requested. SC lovenox for DVT ppx FC Problem List: 1. Acute pancreatitis Pain Ratin Pain Location: LUQ Pain Goal: Pain 4 or less Pain Plan: Severe pain pathway Tomorrow's Labs & Rationales: CBC, BMP
--- NOTE | 2017-02-18 11:23 | RADIOLOGY REPORT ---
EXAMINATION: XR CHEST CLINICAL INFORMATION: Shortness of breath. Pleuritic chest pain. Presumptive diagnosis of pneumonia. COMPARISON: CT scan of the abdomen and pelvis dated 02/16/2017. TECHNIQUE: 2 views of the chest were obtained. FINDINGS: The cardiomediastinal silhouette is within normal limits in size. Lungs bilaterally are symmetrically hypoinflated with slight elevation of the left hemidiaphragm and linear subsegmental atelectasis seen in the right mid lung and in the left lower lung. No focal consolidation, effusion or pneumothorax is seen. Bony structures are unremarkable. There is mild gaseous distention of small bowel loops in the upper abdomen. IMPRESSION: 1. Hypoinflated lungs with linear subsegmental atelectasis in the right midlung and in the left lung base. 2. No focal pneumonia. 3. Mildly gas distended small bowel loops in the upper abdomen. Clinical correlation requested.
--- NOTE | 2017-02-18 11:30 | NUR ---
PT GIVEN IST . USE INSTRUCTED. PT VERBALIZED AND DEMONSTRATES APPROPRIATE TECHNIQUE. PT ENOUCRAGED TO USE 1OX EVERY HOUR. WILL MONITOR
--- NOTE | 2017-02-18 13:52 | PN- Gastroenterology ---
Assessment/Plan Assessment/Recommendations: Mr. Rodriguez had had an uneventful night. He has required analgesia over night but did sleep well without any nausea vomiting. He'll the intensity of the abdominal pain has subsided. He is able to get up and walk to the bathroom without severe pain lightheadedness or other symptoms. He has not felt febrile, has not had chills or rigors. This morning he started clear liquids and has been tolerating them well. In summary we have a 56-year-old gentleman with a history of 3 episodes of pancreatitis approximately 30 years ago. These episodes appeared to be associated with use of tetracycline in each occasion. Since then patient has not had any symptoms related to possible recurrent pancreatitis. He certainly has not had a clear diagnosis of recurrent pancreatitis. This admission based on his clinical presentation Labar tree values and imaging suggests mild to moderately severe acute pancreatitis. Some lab indicators are improving however his white cell count is increased today. Agree with continued supportive care as has already been initiated with volume resuscitation analgesia. No need for antibiotics at this point. Due to the very long Since his original presentation with pancreatitis without suggestion of intermittent ankle otitis, it is highly likely that this episode was triggered and not spontaneous. Reviewing his medications there is no clear association between valacyclovir and pancreatitis in the literature. In contrast statins have been associated at low level II-induced hepatitis. Present the assumption is that the pancreatitis in this case was initiated by the Crestor. Agree with clear liquids until tomorrow morning with possible advancing of diet at that point. White cell count is still elevated but this is not uncommon in the setting of acute hepatitis. Currently no suspicion for infection. On discharge would asked patient to avoid statins in the future. Subjective Subjective: x Objective Vital Signs and I&Os Vital Signs Date Time Temp Pulse Resp B/P B/P Pulse O2 O2 Flow FiO2 Mean Ox Delivery Rate 02/18 0624 98.6 77 18 132/78 95 Room Air 02/17 2242 98.6 81 19 122/80 93 Room Air 02/17 1425 98.9 81 19 132/80 95 Room Air Intake & Output 02/18 1600 02/18 0400 02/17 1600 02/17 0400 02/16 1600 02/16 0400 Intake Total 1600 1300 1200 Output Total Balance 1600 1300 1200 Intake, IV 1200 1000 1200 Intake, Oral 400 300 0 Patient 180 lb Weight Results Pertinent Lab Results: Laboratory Tests 02/18 02/17 0705 45 Chemistry Sodium (137 - 145 mmol/L) 138 Potassium (3.5 - 5.1 mmol/L) 3.9 Chloride (98 - 107 mmol/L) 102 Carbon Dioxide (22 - 30 mmol/L) 26 Anion Gap (5 - 16) 10 BUN (9 - 20 mg/dL) 13 14 Creatinine (0.7 - 1.2 mg/dL) 0.8 0.7 Estimated GFR (>60 ml/min) > 60 > 60 BUN/Creatinine Ratio (7 - 25 %) 16.3 Total Bilirubin (0.2 - 1.3 mg/dL) 0.7 Direct Bilirubin (< 0.4 mg/dL) 0.2 AST (17 - 59 U/L) 33 ALT (21 - 72 U/L) 47 Alkaline Phosphatase (< 127 U/L) 72 Total Protein (6.3 - 8.2 g/dL) 6.4 Albumin (3.5 - 5.0 g/dL) 3.7 Amylase (30 - 110 U/L) 963 H Lipase (23 - 300 U/L) 2089 H 9751 H Coagulation PT (9.4 - 12.5 SEC) 13.4 H INR (0.90 - 1.17) 1.28 H Hematology CBC w Diff NO MAN DIFF REQ NO MAN DIFF REQ WBC (4.8 - 10.8 /CUMM) 14.7 H 14.9 H RBC (4.70 - 6.10 /CUMM) 5.22 4.92 Hgb (14.0 - 18.0 G/DL) 14.8 14.1 Hct (42 - 52 %) 44.6 42.1 MCV (80.0 - 94.0 FL) 85.5 85.5 MCH (27.0 - 31.0 PG) 28.4 28.6 RDW (11.5 - 14.5 %) 14.4 14.5 Plt Count (130 - 400 /CUMM) 231 222 MPV (7.4 - 10.4 FL) 9.2 8.8 Gran % (42.2 - 75.2 %) 80.7 H 80.5 H Lymphocytes % (20.5 - 51.1 %) 10.9 L 13.1 L Monocytes % (1.7 - 9.3 %) 7.9 6.1 Eosinophils % (0 - 5 %) 0.2 0.1 Basophils % (0.0 - 2.0 %) 0.3 0.2 Absolute Granulocytes (1.4 - 6.5 /CUMM) 11.9 H 12.0 H Absolute Lymphocytes (1.2 - 3.4 /CUMM) 1.6 1.9 Absolute Monocytes (0.10 - 0.60 /CUMM) 1.2 H 0.9 H Absolute Eosinophils (0.0 - 0.7 /CUMM) 0 0 Absolute Basophils (0.0 - 0.2 /CUMM) 0.1 0 PUBS MCHC (33.0 - 37.0 G/DL) 33.2 33.4 02/16 02/16 1008 0900 Chemistry Triglycerides Cancelled Cholesterol Cancelled LDL Cholesterol, Calc Cancelled HDL Cholesterol Cancelled Cholesterol/HDL Ratio Cancelled Urines Urine Color (YEL,AMB,STR) YEL Urine Clarity (CLEAR) CLEAR Urine pH (5.0 - 8.0) 6.0 Ur Specific [place] (1.001 - 1.035) 1.015 Urine Protein (NEG,<30 MG/DL) NEG Urine Ketones (NEG) NEG Urine Nitrite (NEG) NEG Urine Bilirubin (NEG) NEG Urine Urobilinogen (0.1 - 1.0 EU/dl) 0.2 Ur Leukocyte Esterase (NEG) NEG Ur Microscopic EXAM NOT REQUIRED Urine Hemoglobin (NEG) NEG Urine Glucose (N MG/DL) NEG 02/16 0850 Chemistry Sodium (137 - 145 mmol/L) 141 Potassium (3.5 - 5.1 mmol/L) 4.2 Chloride (98 - 107 mmol/L) 104 Carbon Dioxide (22 - 30 mmol/L) 27 Anion Gap (5 - 16) 11 BUN (9 - 20 mg/dL) 19 Creatinine (0.7 - 1.2 mg/dL) 0.9 Estimated GFR (>60 ml/min) > 60 BUN/Creatinine Ratio (7 - 25 %) 21.1 Glucose (65 - 99 mg/dL) 101 H Calcium (8.4 - 10.2 mg/dL) 9.5 Total Bilirubin (0.2 - 1.3 mg/dL) 0.3 AST (17 - 59 U/L) 48 ALT (21 - 72 U/L) 74 H Alkaline Phosphatase (< 127 U/L) 69 Troponin I (<0.11 ng/ml) < 0.01 C-Reactive Prot, Quant (<1.0 mg/dL) < 0.5 Total Protein (6.3 - 8.2 g/dL) 6.8 Albumin (3.5 - 5.0 g/dL) 4.1 Globulin (1.9 - 4.2 gm/dL) 2.7 Albumin/Globulin Ratio (1.1 - 2.2 %) 1.5 Triglycerides (<150 mg/dL) 53 Cholesterol (< 200 MG/DL) 127 LDL Cholesterol, Calc (65 - 129 mg/dL) 85 HDL Cholesterol (40 - 60 mg/dL) 32 L Cholesterol/HDL Ratio (0.00 - 4.88 %) 4 Amylase (30 - 110 U/L) 3465 H Lipase (23 - 300 U/L) > 79192 H Hematology CBC w Diff NO MAN DIFF REQ WBC (4.8 - 10.8 /CUMM) 13.8 H RBC (4.70 - 6.10 /CUMM) 4.99 Hgb (14.0 - 18.0 G/DL) 14.2 Hct (42 - 52 %) 42.7 MCV (80.0 - 94.0 FL) 85.7 MCH (27.0 - 31.0 PG) 28.4 RDW (11.5 - 14.5 %) 14.1 Plt Count (130 - 400 /CUMM) 230 MPV (7.4 - 10.4 FL) 8.2 Gran % (42.2 - 75.2 %) 84.4 H Lymphocytes % (20.5 - 51.1 %) 9.6 L Monocytes % (1.7 - 9.3 %) 5.8 Eosinophils % (0 - 5 %) 0.1 Basophils % (0.0 - 2.0 %) 0.1 Absolute Granulocytes (1.4 - 6.5 /CUMM) 11.6 H Absolute Lymphocytes (1.2 - 3.4 /CUMM) 1.3 Absolute Monocytes (0.10 - 0.60 /CUMM) 0.8 H Absolute Eosinophils (0.0 - 0.7 /CUMM) 0 Absolute Basophils (0.0 - 0.2 /CUMM) 0 PUBS MCHC (33.0 - 37.0 G/DL) 33.1
[2017-02-18 15:12] VITALS: BP 130/70
--- NOTE | 2017-02-18 21:05 | Patient Discharge Instructions ---
Discharge Instructions General Discharge Information You were seen/treated for: Acute Drug induced Pancreatitis Special Instructions: Please follow up with your PCP in 1 week Please follow-up with her GI doctor after discharge Please try to avoid Crestor in future Ask Your PCP about other alternatives Diet Recommended Diet: Heart Healthy Activity Activity Self Limited: Yes Acute Coronary Syndrome Inclusion Criteria At DC or during hospital stay patient has or had the following: ACS DIAGNOSIS No Discharge Core Measures Meds if any: Prescribed or Continued at Discharge Meds if any: NOT Prescribed or Continued at Discharge Congestive Heart Failure Inclusion Criteria At DC or during hospital stay patient has or had the following: CHF DIAGNOSIS No Discharge Core Measures Meds if any: Prescribed or Continued at Discharge Meds if any: NOT Prescribed or Continued at Discharge Cerebrovascular accident Inclusion Criteria At DC or during hospital stay patient has or had the following: CVA/TIA Diagnosis No Discharge Core Measures Meds if any: Prescribed or Continued at Discharge Meds if any: NOT Prescribed or Continued at Discharge Venous thromboembolism Inclusion Criteria VTE Diagnosis No VTE Type NONE VTE Confirmed by (Test) NONE Discharge Core Measures - Per Current guidelines, there needs to be overlap - treatment for the first 5 days of Warfarin therapy. - If discharged on Warfarin prior to 5 days of - overlap therapy, the patient will need to be - assessed for post discharge needs including - *Post discharge parental anticoagulation - *Warfarin and/or parental anticoagulation education - *Follow up date to check INR post discharge At least 5 days overlap therapy as Inpatient No Meds if any: Prescribed or Continued at Discharge Note: Overlap Therapy is Warfarin and Anticoagulant Meds if any: NOT Prescribed or Continued at Discharge
[2017-02-18 22:24] VITALS: BP 130/70
[2017-02-19 06:30] VITALS: BP 118/80
[2017-02-19 08:06] LABS: ABSOLUTE BASOPHIL COUNT 0 /CUMM (0.0-0.2); ABSOLUTE EOSINOPHIL COUNT 0.1 /CUMM (0.0-0.7); ABSOLUTE GRANULOCYTE CT 8.8 /CUMM (1.4-6.5); ABSOLUTE LYMPH COUNT 2.2 /CUMM (1.2-3.4); BASOPHIL % 0.4 % (0.0-2.0); EOSINOPHIL % 0.9 % (0-5); HEMATOCRIT 42.2 % (42-52); MEAN CORPUSCULAR HGB 28.3 PG (27.0-31.0); MEAN CORPUSCULAR VOLUME 85.8 FL (80.0-94.0); MEAN PLATELET VOLUME 8.6 FL (7.4-10.4); PLATELET COUNT 247 /CUMM (130-400); RBC DISTRIBUTION WIDTH 13.8 % (11.5-14.5); RED BLOOD CELL CT 4.91 /CUMM (4.70-6.10); WHITE BLOOD CELL COUNT 12.1 /CUMM (4.8-10.8)
--- NOTE | 2017-02-19 10:24 | PN- Housestaff ---
MAXIMO MALCOLM 02/19/17 1024: Subjective Follow-up For: Acute pancreatitis Subjective: This morning patient is alert, awake and oriented. He is feeling better. Yesterday he was complaining of abdominal pain after eating clear liquid diet and made nothing by mouth again. He denies any abdominal pain, nausea, vomiting. Review of Systems Constitutional: Reports: see HPI. Objective Last 24 Hrs of Vital Signs/I&O Vital Signs Date Time Temp Pulse Resp B/P B/P Pulse O2 O2 Flow FiO2 Mean Ox Delivery Rate 02/19 1452 98.9 76 20 120/80 95 Room Air 02/19 0630 98.7 75 18 118/80 96 Room Air 02/18 2224 99.7 84 19 130/70 94 Room Air Intake & Output 02/19 1600 02/19 0800 02/19 0000 Intake Total 800 800 900 Output Total 600 300 Balance 200 800 600 Intake, IV 800 800 Intake, Oral 0 100 Intake, 800 TPN/PPN Number 0 Bowel Movements Output, Urine 600 300 Patient 180 lb Weight Physical Exam General Appearance: Alert Neck: Supple Cardiovascular: Regular Rate, No Murmurs Lungs: Clear to Auscultation Abdomen: Normal Bowel Sounds, Soft, No Tenderness Neurological: Normal Gait, Normal Speech, Sensation Intact, Cranial Nerves 3-12 NL Extremities: No Edema Current Medications: Current Medications Sig/Saud Start time Last Medication Dose Route Stop Time Status Admin Acetaminophen 650 MG Q6P PRN 02/16 1300 AC PO Acetaminophen 1,000 MG Q6P PRN 02/16 1300 AC 02/18 IV 1752 Aspirin 81 MG DAILY 02/17 1000 AC PO Enoxaparin Sodium 40 MG DAILY 02/16 1301 AC SC Hydromorphone HCl 0.5 MG Q4P PRN 02/16 1300 AC 02/19 IV 0351 Lactated Ringer's 1,000 ML .Q10H 02/16 1315 AC 02/19 IV 0958 Ondansetron HCl 4 MG Q6P PRN 02/16 1330 AC IV Pantoprazole Sodium 40 MG DAILY 02/17 1000 AC 02/19 IV 0955 Last 24 Hrs of Lab/Cristobal Results Last 24 Hrs of Labs/Mics: Laboratory Tests 02/19/17 0645: CBC w Diff NO MAN DIFF REQ, RBC 4.91, MCV 85.8, MCH 28.3, RDW 13.8, MPV 8.6, Gran % 73.0, Lymphocytes % 17.8 L, Monocytes % 7.9, Eosinophils % 0.9, Basophils % 0.4, Absolute Granulocytes 8.8 H, Absolute Lymphocytes 2.2, Absolute Monocytes 1.0 H, Absolute Eosinophils 0.1, Absolute Basophils 0, PUBS MCHC 33.0 Assessment/Plan Assessment: Mr. Rodriguez is 56 year old gentleman with PMH of coronary arteriosclerosis, hypercholesterolemia, drug induced pancreatitis, genital herpes and gastritis has been admitted on general medicine floor for mild to moderate Acute Pancreatitis of Unclear etiology; possibly drug induced Crestor. BISAP=zero PLAN * Monitor vitals closely * Continue IV fluids for now * No Crestor in future * GI consult appreciated * Patient tolerated clears and breakfast and we will advance to mechanical soft diet at lunch * Adequate pain management * Will continue rest of home medications * Full code * Possible discharge tomorrow if medically stable Problem List: 1. Acute pancreatitis Pain Ratin Pain Location: epigastric Pain Goal: Pain 4 or less Pain Plan: dilaudid Tomorrow's Labs & Rationales: none DVT/Prophylaxis: pharmacological Consulting Request: Consulting Physician: Leodan Gonzalez Reason for Consult: Acute Pancreatitis NIKHIL OSMAN 02/19/17 1025: Attending MD Review Statement Attending Statement Attending MD Statement: examined this patient, discuss w/resident/PA/OPEN HEARTH FURNACE OPERATOR HELPER, agreed w/resident/PA/OPEN HEARTH FURNACE OPERATOR HELPER, discussed with family, reviewed EMR data (avail), discussed with nursing, discussed with case mgmt, reviewed images, amended to note Attending Assessment/Plan: 56-year-old male with a past medical history of coronary artery disease and remote history of pancreatitis. He is here with an acute pancreatitis as supported by CT with IV contrast + lipase 10,000 on admission. GI feels this is probably more likely to be statin related rather than the valacyclovir both of which were started in January 2017. advance diet as tolerated. IVF gentle hydration, lipase trending down, Vital stable. avoid statin at d/c. anticipate d/c soon.
[2017-02-19 14:52] VITALS: BP 120/80
--- NOTE | 2017-02-19 17:43 | PN- Gastroenterology ---
Assessment/Plan Assessment/Recommendations: Acute pancreatitis (by symptoms, imaging, blood work), in resolution. Etiology unclear, although may be medication induced. No gallstones on ultrasound; normal liver function tests. Mild leukocytosis, improved. Recommendations * Advance to low fat diet * If remains pain-free, may discharge soon if stable otherwise. 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 Thank you for allowing our participation in this case. Please call or reconsult during this hospitalization as needed. Subjective Subjective: Denies abdominal pain although he does have "soreness." Tolerating clear liquid diet. No nausea, vomiting, fever. Objective Vital Signs and I&Os Vital Signs Date Time Temp Pulse Resp B/P B/P Pulse O2 O2 Flow FiO2 Mean Ox Delivery Rate 02/19 1452 98.9 76 20 120/80 95 Room Air 02/19 0630 98.7 75 18 118/80 96 Room Air 02/18 2224 99.7 84 19 130/70 94 Room Air Intake & Output 02/19 1600 02/19 0400 02/18 1600 02/18 0400 02/17 1600 02/17 0400 Intake Total 1623 651 0731 1300 1200 Output Total 600 300 Balance 4658 326 3266 1300 1200 Intake, IV 267 914 1318 1000 1200 Intake, Oral 0 100 1520 300 0 Intake, 800 TPN/PPN Number 0 0 Bowel Movements Output, Urine 600 300 Patient 180 lb Weight Physical Exam: Sclera anicteric. Abdomen is soft and nondistended with minimal tenderness in the epigastrium. Bowel sounds are present Current Medications: Current Medications Sig/Saud Start time Last Medication Dose Route Stop Time Status Admin Acetaminophen 650 MG Q6P PRN 02/16 1300 AC PO Acetaminophen 1,000 MG Q6P PRN 02/16 1300 AC 02/18 IV 1752 Aspirin 81 MG DAILY 02/17 1000 AC PO Enoxaparin Sodium 40 MG DAILY 02/16 1301 AC SC Hydromorphone HCl 0.5 MG Q4P PRN 02/16 1300 AC 02/19 IV 0351 Lactated Ringer's 1,000 ML .Q10H 02/16 1315 AC 02/19 IV 02/19 2100 0958 Omeprazole 40 MG DAILY AC 02/20 0700 AC PO Ondansetron HCl 4 MG Q6P PRN 02/16 1330 AC IV Pantoprazole Sodium 40 MG DAILY 02/17 1000 DC 02/19 IV 0955 Results Pertinent Lab Results: Laboratory Tests 02/19 02/18 0645 0705 Chemistry Sodium (137 - 145 mmol/L) 138 Potassium (3.5 - 5.1 mmol/L) 3.9 Chloride (98 - 107 mmol/L) 102 Carbon Dioxide (22 - 30 mmol/L) 26 Anion Gap (5 - 16) 10 BUN (9 - 20 mg/dL) 13 Creatinine (0.7 - 1.2 mg/dL) 0.8 Estimated GFR (>60 ml/min) > 60 BUN/Creatinine Ratio (7 - 25 %) 16.3 Total Bilirubin (0.2 - 1.3 mg/dL) 0.7 Direct Bilirubin (< 0.4 mg/dL) 0.2 AST (17 - 59 U/L) 33 ALT (21 - 72 U/L) 47 Alkaline Phosphatase (< 127 U/L) 72 Total Protein (6.3 - 8.2 g/dL) 6.4 Albumin (3.5 - 5.0 g/dL) 3.7 Lipase (23 - 300 U/L) 2089 H Coagulation PT (9.4 - 12.5 SEC) 13.4 H INR (0.90 - 1.17) 1.28 H Hematology CBC w Diff NO MAN DIFF REQ NO MAN DIFF REQ WBC (4.8 - 10.8 /CUMM) 12.1 H 14.7 H RBC (4.70 - 6.10 /CUMM) 4.91 5.22 Hgb (14.0 - 18.0 G/DL) 13.9 L 14.8 Hct (42 - 52 %) 42.2 44.6 MCV (80.0 - 94.0 FL) 85.8 85.5 MCH (27.0 - 31.0 PG) 28.3 28.4 RDW (11.5 - 14.5 %) 13.8 14.4 Plt Count (130 - 400 /CUMM) 247 231 MPV (7.4 - 10.4 FL) 8.6 9.2 Gran % (42.2 - 75.2 %) 73.0 80.7 H Lymphocytes % (20.5 - 51.1 %) 17.8 L 10.9 L Monocytes % (1.7 - 9.3 %) 7.9 7.9 Eosinophils % (0 - 5 %) 0.9 0.2 Basophils % (0.0 - 2.0 %) 0.4 0.3 Absolute Granulocytes (1.4 - 6.5 /CUMM) 8.8 H 11.9 H Absolute Lymphocytes (1.2 - 3.4 /CUMM) 2.2 1.6 Absolute Monocytes (0.10 - 0.60 /CUMM) 1.0 H 1.2 H Absolute Eosinophils (0.0 - 0.7 /CUMM) 0.1 0 Absolute Basophils (0.0 - 0.2 /CUMM) 0 0.1 PUBS MCHC (33.0 - 37.0 G/DL) 33.0 33.2 06/17 0645 Chemistry BUN (9 - 20 mg/dL) 14 Creatinine (0.7 - 1.2 mg/dL) 0.7 Estimated GFR (>60 ml/min) > 60 Amylase (30 - 110 U/L) 963 H Lipase (23 - 300 U/L) 9751 H Hematology CBC w Diff NO MAN DIFF REQ WBC (4.8 - 10.8 /CUMM) 14.9 H RBC (4.70 - 6.10 /CUMM) 4.92 Hgb (14.0 - 18.0 G/DL) 14.1 Hct (42 - 52 %) 42.1 MCV (80.0 - 94.0 FL) 85.5 MCH (27.0 - 31.0 PG) 28.6 RDW (11.5 - 14.5 %) 14.5 Plt Count (130 - 400 /CUMM) 222 MPV (7.4 - 10.4 FL) 8.8 Gran % (42.2 - 75.2 %) 80.5 H Lymphocytes % (20.5 - 51.1 %) 13.1 L Monocytes % (1.7 - 9.3 %) 6.1 Eosinophils % (0 - 5 %) 0.1 Basophils % (0.0 - 2.0 %) 0.2 Absolute Granulocytes (1.4 - 6.5 /CUMM) 12.0 H Absolute Lymphocytes (1.2 - 3.4 /CUMM) 1.9 Absolute Monocytes (0.10 - 0.60 /CUMM) 0.9 H Absolute Eosinophils (0.0 - 0.7 /CUMM) 0 Absolute Basophils (0.0 - 0.2 /CUMM) 0 PUBS MCHC (33.0 - 37.0 G/DL) 33.4
[2017-02-19 22:19] VITALS: BP 122/70
[2017-02-20 06:43] VITALS: BP 122/84
--- NOTE | 2017-02-20 08:42 | Discharge Summary ---
Hospital Course Course Consulting Request: Consulting Physician: Leodan Gonzalez Reason for Consult: Acute Pancreatitis Allergies: Coded Allergies: tetracycline (Severe, PANCREATITIS 02/16/17) Discharge Instructions General Discharge Information Code Status: Full Code Medications at Discharge Discharge Medications: Stop taking the following medications: Rosuvastatin Calcium (Crestor) 5 MG TABLET ORAL DAILY Qty = 38 Continue taking these medications: Valacyclovir HCl (Valacyclovir) 500 MG TABLET 1 Tablet ORAL DAILY Qty = 30 Comments: NOT GIVEN IN HOSPITAL Fish Oil/Borage/Flax/Om3,6,9#1 ([place] 3-6-9 1,200 MG Softgel) 1,200 MG CAPSULE 1 Capsule ORAL DAILY Comments: NOT GIVEN IN HOSPITAL Aspirin (Aspirin*) 81 MG TAB.CHEW 1 Tablet ORAL DAILY Comments: NOT TAKEN IN HOSPITAL Multivit-Minerals/FA/Lycopene (One Daily For Men Tablet) 0.4 MG-600 MCG TABLET 1 Tablet ORAL DAILY Comments: NOT GIVEN IN HOSPITAL Famotidine (Famotidine) 20 MG TABLET 1 Tablet ORAL GIVE ONCE Comments: NOT GIVEN IN HOSPITAL
--- NOTE | 2017-02-20 08:49 | PN- Housestaff ---
AMXIMO MALCOLM 02/20/17 0848: Subjective Follow-up For: Acute pancreatitis Subjective: This morning patient is alert, awake and oriented. He is feeling better. He is tolerating low-fat diet. Denies any nausea, vomiting. Reports some mild epigastric pain sometimes Review of Systems Constitutional: Reports: see HPI. Objective Last 24 Hrs of Vital Signs/I&O Vital Signs Date Time Temp Pulse Resp B/P B/P Pulse O2 O2 Flow FiO2 Mean Ox Delivery Rate 02/20 0643 98.1 72 16 122/84 94 Room Air 02/19 2219 98.4 76 20 122/70 94 Room Air 02/19 1452 98.9 76 20 120/80 95 Room Air Intake & Output 02/20 1600 02/20 0800 02/20 0000 Intake Total 130 1040 Output Total Balance 130 1040 Intake, IV 10 800 Intake, Oral 120 240 Physical Exam General Appearance: Alert, Oriented X3, Cooperative, No Acute Distress Neck: Supple Cardiovascular: Regular Rate, No Murmurs Lungs: Clear to Auscultation Abdomen: Normal Bowel Sounds, Soft, No Tenderness, No Masses Neurological: Normal Speech, Strength at 5/5 X4 Ext, Sensation Intact, Cranial Nerves 3-12 NL Extremities: No Edema Current Medications: Current Medications Sig/Saud Start time Last Medication Dose Route Stop Time Status Admin Acetaminophen 650 MG .STK-MED ONE 02/19 211 DC PO 02/19 211 Acetaminophen 650 MG Q6P PRN 02/16 1300 AC 02/19 PO 2110 Acetaminophen 1,000 MG Q6P PRN 02/16 1300 AC 02/18 IV 1752 Aspirin 81 MG DAILY 02/17 1000 AC PO Enoxaparin Sodium 40 MG DAILY 02/16 1301 AC SC Hydromorphone HCl 0.5 MG Q4P PRN 02/16 1300 AC 02/19 IV 0351 Lactated Ringer's 1,000 ML .Q10H 02/16 1315 DC 02/19 IV 02/19 2100 0958 Omeprazole 40 MG DAILY AC 02/20 0700 AC 02/20 PO 0509 Ondansetron HCl 4 MG Q6P PRN 02/16 1330 AC IV Pantoprazole Sodium 40 MG DAILY 02/17 1000 DC 02/19 IV 0955 Assessment/Plan Assessment: Mr. Rodriguez is 56 year old gentleman with PMH of coronary arteriosclerosis, hypercholesterolemia, drug induced pancreatitis, genital herpes and gastritis has been admitted on general medicine floor for mild to moderate Acute Pancreatitis of Unclear etiology; possibly drug induced Crestor. PLAN * Patient is medically stable to be discharged today * No Crestor in future * GI consult appreciated * Patient tolerated low-fat diet regular * Will hold Crestor and continue rest of home medications upon discharge * Patient advised to follow-up with his PCP and GI doctor after discharge Problem List: 1. Acute pancreatitis Pain Ratin Pain Location: none Pain Goal: Pain 4 or less Pain Plan: tylenol Tomorrow's Labs & Rationales: none DVT/Prophylaxis: pharmacological JACQUI,NIKHIL 02/20/17 0923: Attending MD Review Statement Attending Statement Attending MD Statement: examined this patient, discuss w/resident/PA/GLASS ARTIST, agreed w/resident/PA/GLASS ARTIST, discussed with family, reviewed EMR data (avail), discussed with nursing, discussed with case mgmt, reviewed images, amended to note Attending Assessment/Plan: 56-year-old male with a past medical history of coronary artery disease and remote history of pancreatitis. He is here with an acute pancreatitis as supported by CT with IV contrast + lipase 10,000 on admission. GI feels this is probably more likely to be statin related rather than the valacyclovir both of which were started in January 2017. Patient tolerated diet. d/c IVF, lipase trending down, Vital stable. avoid statin at d/c. anticipate d/c soon.
== END 2017-02-20 10:30 | DRG 440 ==
LOC: ERH 07:49 → ERHI 10:47 → 2NA 10:47 → ENRESERV 12:29 → ENTRNSPT 13:25 → 2NA 13:27 → CMPTRNSPT 13:38 → 2NA 19:05 → ENPENDDIS 02-20 10:05 → 2NA 02-20 10:30
PROVIDERS: Internal Medicine; Physician Assistant Medical; Student in an Organized Health Care Education/Training Program; ADMIT Internal Medicine
DX: K85.30 Drug induced acute pancreatitis without necrosis or infection (principal); A60.00 Herpesviral infection of urogenital system, unspecified; T46.6X5A Adverse effect of antihyperlipidemic and antiarteriosclerotic drugs, initial encounter; Y92.009 Unspecified place in unspecified non-institutional (private) residence as the place of occurrence of the external cause; I25.10 Atherosclerotic heart disease of native coronary artery without angina pectoris; E78.00 Pure hypercholesterolemia, unspecified; K29.70 Gastritis, unspecified, without bleeding; K21.9 Gastro-esophageal reflux disease without esophagitis; E78.5 Hyperlipidemia, unspecified; Z87.891 Personal history of nicotine dependence
CPT/HCPCS: 2NAP; 74177; 81003; 82436; 93005; 93010; 96361; 96365; 96375; J0131; J1650; J2405; J3490; J7120